=== PATIENT | female | born 1970 | race Caucasian/White ===

== ENCOUNTER 2016-04-23 11:40 | Emergency (ER) | payer OTHER ==
--- NOTE | 2016-04-23 13:46 | ED CLINICAL REPORT ---
Clinical Report - Physicians/Mid Levels [facility] [address] [place] [address] 04/23/2016 11:39 Patient: MARCELO PADILLA Time Seen: 12:55. Arrived- By private vehicle. Historian- patient. HISTORY OF PRESENT ILLNESS Chief Complaint: SKIN RASH and TENDER AREA. This started yesterday and is still present. It was gradual in onset and has been constant. It is described as painful. It has been located on the right breast. No cause has been identified. REVIEW OF SYSTEMS No chills, fever, sweats, calf pain or chest pain. No cough, difficulty breathing, pedal edema, palpitations or abdominal pain. No constipation, diarrhea, nausea, vomiting or urinary problems. All systems otherwise negative, except as recorded above. PAST HISTORY Problems: Bronchitis. Healing Abscess. Cellulitis. Abscess. Dental Caries. Cough. Obesity. Anxiety Reaction. Migraines . Arthritis, with bone spurs. Asthma. Anxiety disorder. Additional Surgeries: Cardiac Catheterization. Cholecystectomy. . Knee Surgery. Medications: Albuterol Sulfate Inhalation. Furosemide Oral 40 mg, daily. KlonoPIN Oral. Lisinopril Oral 10 mg, daily. Nortriptyline HCl Oral 50 mg, 2x a day. Potassium Chloride Oral 20 meq, 2x a day. Qvar Inhalation. Ranitidine HCl Oral 150 mg, daily. Simvastatin Oral 20 mg, daily. Allergies: ASA. Definite Moderate(nausea) (Set off her asthma) Codeine. Definite Moderate(nausea, vomiting) Hydrocodone. Morphine Sulfate. Definite Moderate(rash) PCN. Definite Moderate. SOCIAL HISTORY Former smoker. FAMILY HISTORY she and multiple family members have had prior infections with MRSA. PHYSICAL EXAM Appearance: Alert. She is morbidly obese. Eyes: Pupils equal, round and reactive to light. ENT: Ears normal. Pharynx normal. Neck: Neck supple. CVS: Normal heart rate and rhythm. Heart sounds normal. Respiratory: No respiratory distress. Breath sounds normal. Abdomen: Nontender. No organomegaly. Skin: Medium area of cellulitis with tenderness, erythema and warmth to the chest. No abscess. Extremities: Normal external inspection. Extremities nontender. No calf tenderness. PROGRESS AND PROCEDURES Course of Care: Patient is stable. Patient/family counseled. Old medical records reviewed. Disposition: Discharged. Condition: stable. CLINICAL IMPRESSION Cellulitis of the chest wall. INSTRUCTIONS Warnings: Further evaluation is necessary. GENERAL WARNINGS: Return or contact your physician immediately if your condition worsens or changes unexpectedly, if not improving as expected, or if other problems arise. Your Current Medications: CONTINUE TAKING THE FOLLOWING MEDICATIONS: Albuterol Sulfate Inhalation. Furosemide Oral : 40 mg daily. KlonoPIN Oral. Lisinopril Oral : 10 mg daily. Nortriptyline HCl Oral : 50 mg 2x a day. Potassium Chloride Oral : 20 meq 2x a day. Qvar Inhalation. Ranitidine HCl Oral : 150 mg daily. Simvastatin Oral : 20 mg daily. Prescription Medications: Bactrim DS 800 mg / 160 mg: take 2 tablets orally every 12 hours for 10 days. No refill. Substitution is permissible. Follow-up: Follow up with your doctor in two days. Call for the next available appointment. Understanding of the discharge instructions verbalized by patient. (Electronically signed by Arpan Palacios MD 04/28/2016 18:14)
--- NOTE | 2016-04-23 13:46 | ED NURSING NOTES ---
Clinical Report - Nurses [address] [place] [address] 04/23/2016 11:39 Patient: MARCELO PADILLA TRIAGE Triage time 1145. Acuity: LEVEL 4. 11:45. --11:53 Shamika Cabrera R.N. 11:47 04/23/16. BP: 181/112. HR: 94. RR: 26. O2 saturation: 95%. Temp: 97.6 F. Pain level now: 01/23. --11:53 Shamika Cabrera R.N. Triage time 1147. Chief Complaint: TENDER AREA and . under right breast, pt feels "lump". --14:03 Shamika Cabrera R.N. Weight: 141.5 kg stated. Height/Length: 62.5 inches Per Patient. BMI: 56.2. --11:48 Shamika Cabrera R.N. Medications Albuterol Sulfate Inhalation. Furosemide Oral 40 mg, daily. KlonoPIN Oral. Lisinopril Oral 10 mg, daily. Nortriptyline HCl Oral 50 mg, 2x a day. Potassium Chloride Oral 20 meq, 2x a day. Qvar Inhalation. Ranitidine HCl Oral 150 mg, daily. Simvastatin Oral 20 mg, daily. --11:52 Shamika Cabrera R.N. Allergies ASA. Definite Moderate(nausea) (Set off her asthma) Codeine. Definite Moderate(nausea, vomiting) Hydrocodone. Morphine Sulfate. Definite Moderate(rash) PCN. Definite Moderate --11:52 Shamika Cabrera R.N. History Arrived by private vehicle. Historian: patient. Accompanied by friend. Primary physician (kim). PAST MEDICAL HX: ( MRSA + in past (but states she is now MRSA Free)). SOCIAL HX: Former smoker (quit 25 years ago). --11:53 Shamika Cabrera R.N. PROBLEMS: Bronchitis. Healing Abscess. Cellulitis. Abscess. Dental Caries. Cough. Obesity. Anxiety Reaction. Migraines . Arthritis, with bone spurs. Asthma. Anxiety disorder. --11:49 Shamika Cabrera R.N. ADDITIONAL SURGERIES: Cardiac Catheterization. Cholecystectomy. . Knee Surgery. --11:51 Shamika Cabrera R.N. Interventions ID band on patient. To treatment room. --11:53 Shamika Cabrera R.N. PHYSICAL ASSESSMENT 11:47. To room via wheelchair. Patient gowned. GENERAL / NEURO / PSYCH: Alert. The patient does not appear to be in acute distress. Appears anxious. Oriented X 4. RESPIRATORY: Mild respiratory distress (chronic). CVS: Capillary refill less than 2 seconds. SKIN: Skin is warm and dry. Skin tenderness present. Increased warmth present. Erythema present. --14:02 Shamika Cabrera R.N. NURSING PROGRESS NOTES 11:45. Patient gowned. Patient identifiers checked. Call light placed in reach. Side rails up. Bed placed in lowest position. Patient ready for evaluation- chart flagged and notification provided. --11:53 Shamika Cabrera R.N. ( Observed while performed a breast exam.). --13:18 Carol Clark, Tech1 12:30 Pt given po fluids, watching t.v. in no acute distress. --14:02 Shamika Cabrera R.N. DISPOSITION / DISCHARGE 13:40. Condition at departure: unchanged and stable. Discharge instructions provided and reviewed with the patient and spouse. Reviewed medication(s) (bactrim). Patient and spouse verbalized understanding. Written instructions provided in [place]. The patient was discharged home and accompanied by spouse. She left the Emergency Department ambulatory and via private vehicle. Spouse driving. --14:01 Shamika Cabrera R.N. 13:40 04/23/16. BP: 168/90. HR: 86. RR: 22. O2 saturation: 96% on room air. Temp: deferred. Pain level now: 12/24. --14:01 Shamika Cabrera R.N. Locked/Released at 04/23/2016 14:04 by Shamika Cabrera R.N.
--- NOTE | 2016-04-23 13:46 | ED NURSING NOTES ---
Clinical Report - Nurses [facility] [address] [place] [address] 04/23/2016 11:39 Patient: MARCELO PADILLA TRIAGE Triage time 1145. Acuity: LEVEL 4. 11:45. --11:53 Shamika Cabrera R.N. 11:47 04/23/16. BP: 181/112. HR: 94. RR: 26. O2 saturation: 95%. Temp: 97.6 F. Pain level now: 01/23. --11:53 Shamika Cabrera R.N. Triage time 1147. Chief Complaint: TENDER AREA and . under right breast, pt feels "lump". --14:03 Shamika Cabrera R.N. Weight: 141.5 kg stated. Height/Length: 62.5 inches Per Patient. BMI: 56.2. --11:48 Shamika Cabrera R.N. Medications Albuterol Sulfate Inhalation. Furosemide Oral 40 mg, daily. KlonoPIN Oral. Lisinopril Oral 10 mg, daily. Nortriptyline HCl Oral 50 mg, 2x a day. Potassium Chloride Oral 20 meq, 2x a day. Qvar Inhalation. Ranitidine HCl Oral 150 mg, daily. Simvastatin Oral 20 mg, daily. --11:52 Shamika Cabrera R.N. Allergies ASA. Definite Moderate(nausea) (Set off her asthma) Codeine. Definite Moderate(nausea, vomiting) Hydrocodone. Morphine Sulfate. Definite Moderate(rash) PCN. Definite Moderate --11:52 Shamika Cabrera R.N. History Arrived by private vehicle. Historian: patient. Accompanied by friend. Primary physician (kim). PAST MEDICAL HX: ( MRSA + in past (but states she is now MRSA Free)). SOCIAL HX: Former smoker (quit 25 years ago). --11:53 Shamika Cabrera R.N. PROBLEMS: Bronchitis. Healing Abscess. Cellulitis. Abscess. Dental Caries. Cough. Obesity. Anxiety Reaction. Migraines . Arthritis, with bone spurs. Asthma. Anxiety disorder. --11:49 Shamika Cabrera R.N. ADDITIONAL SURGERIES: Cardiac Catheterization. Cholecystectomy. . Knee Surgery. --11:51 Shamika Cabrera R.N. Interventions ID band on patient. To treatment room. --11:53 Shamika Cabrera R.N. PHYSICAL ASSESSMENT 11:47. To room via wheelchair. Patient gowned. GENERAL / NEURO / PSYCH: Alert. The patient does not appear to be in acute distress. Appears anxious. Oriented X 4. RESPIRATORY: Mild respiratory distress (chronic). CVS: Capillary refill less than 2 seconds. SKIN: Skin is warm and dry. Skin tenderness present. Increased warmth present. Erythema present. --14:02 Shamika Cabrera R.N. NURSING PROGRESS NOTES 11:45. Patient gowned. Patient identifiers checked. Call light placed in reach. Side rails up. Bed placed in lowest position. Patient ready for evaluation- chart flagged and notification provided. --11:53 Shamika Cabrera R.N. ( Observed while performed a breast exam.). --13:18 Carol Clark, Tech1 12:30 Pt given po fluids, watching t.v. in no acute distress. --14:02 Shmaika Cabrera R.N. DISPOSITION / DISCHARGE 13:40. Condition at departure: unchanged and stable. Discharge instructions provided and reviewed with the patient and spouse. Reviewed medication(s) (bactrim). Patient and spouse verbalized understanding. Written instructions provided in Sammarinese. The patient was discharged home and accompanied by spouse. She left the Emergency Department ambulatory and via private vehicle. Spouse driving. --14:01 Shamika Cabrera R.N. 13:40 04/23/16. BP: 168/90. HR: 86. RR: 22. O2 saturation: 96% on room air. Temp: deferred. Pain level now: 12/24. --14:01 Shamika Cabrera R.N. Locked/Released at 04/23/2016 14:04 by Shamika Cabrera R.N.
--- NOTE | 2016-04-23 13:46 | ED CLINICAL REPORT ---
Clinical Report - Physicians/Mid Levels [facility] [address] [place] [address] 04/23/2016 11:39 Patient: MARCELO PADILLA Time Seen: 12:55. Arrived- By private vehicle. Historian- patient. HISTORY OF PRESENT ILLNESS Chief Complaint: SKIN RASH and TENDER AREA. This started yesterday and is still present. It was gradual in onset and has been constant. It is described as painful. It has been located on the right breast. No cause has been identified. REVIEW OF SYSTEMS No chills, fever, sweats, calf pain or chest pain. No cough, difficulty breathing, pedal edema, palpitations or abdominal pain. No constipation, diarrhea, nausea, vomiting or urinary problems. All systems otherwise negative, except as recorded above. PAST HISTORY Problems: Bronchitis. Healing Abscess. Cellulitis. Abscess. Dental Caries. Cough. Obesity. Anxiety Reaction. Migraines . Arthritis, with bone spurs. Asthma. Anxiety disorder. Additional Surgeries: Cardiac Catheterization. Cholecystectomy. . Knee Surgery. Medications: Albuterol Sulfate Inhalation. Furosemide Oral 40 mg, daily. KlonoPIN Oral. Lisinopril Oral 10 mg, daily. Nortriptyline HCl Oral 50 mg, 2x a day. Potassium Chloride Oral 20 meq, 2x a day. Qvar Inhalation. Ranitidine HCl Oral 150 mg, daily. Simvastatin Oral 20 mg, daily. Allergies: ASA. Definite Moderate(nausea) (Set off her asthma) Codeine. Definite Moderate(nausea, vomiting) Hydrocodone. Morphine Sulfate. Definite Moderate(rash) PCN. Definite Moderate. SOCIAL HISTORY Former smoker. FAMILY HISTORY she and multiple family members have had prior infections with MRSA. PHYSICAL EXAM Appearance: Alert. She is morbidly obese. Eyes: Pupils equal, round and reactive to light. ENT: Ears normal. Pharynx normal. Neck: Neck supple. CVS: Normal heart rate and rhythm. Heart sounds normal. Respiratory: No respiratory distress. Breath sounds normal. Abdomen: Nontender. No organomegaly. Skin: Medium area of cellulitis with tenderness, erythema and warmth to the chest. No abscess. Extremities: Normal external inspection. Extremities nontender. No calf tenderness. PROGRESS AND PROCEDURES Course of Care: Patient is stable. Patient/family counseled. Old medical records reviewed. Disposition: Discharged. Condition: stable. CLINICAL IMPRESSION Cellulitis of the chest wall. INSTRUCTIONS Warnings: Further evaluation is necessary. GENERAL WARNINGS: Return or contact your physician immediately if your condition worsens or changes unexpectedly, if not improving as expected, or if other problems arise. Your Current Medications: CONTINUE TAKING THE FOLLOWING MEDICATIONS: Albuterol Sulfate Inhalation. Furosemide Oral : 40 mg daily. KlonoPIN Oral. Lisinopril Oral : 10 mg daily. Nortriptyline HCl Oral : 50 mg 2x a day. Potassium Chloride Oral : 20 meq 2x a day. Qvar Inhalation. Ranitidine HCl Oral : 150 mg daily. Simvastatin Oral : 20 mg daily. Prescription Medications: Bactrim DS 800 mg / 160 mg: take 2 tablets orally every 12 hours for 10 days. No refill. Substitution is permissible. Follow-up: Follow up with your doctor in two days. Call for the next available appointment. Understanding of the discharge instructions verbalized by patient. (Electronically signed by Arpan Palacios MD 04/28/2016 18:14)
--- NOTE | 2016-04-28 18:14 | ED MED RECONCILIATION SUMMARY ---
Patient: MARCELO PADILLA Medication Reconciliation Report [facility] VisitID: [id number] [address] [place] [address] 45y, F Registration Date/Time: 04/23/2016 Weight: 141.5 kg Height/Length: (not available) BMI: 56.2 ALLERGIES: ASA, Codeine, Hydrocodone, Morphine Sulfate, PCN The patient's Home Medications are listed below: CONTINUE TAKING THE FOLLOWING MEDICATIONS: Albuterol Sulfate Inhalation Furosemide Oral 40 mg, daily KlonoPIN Oral Lisinopril Oral 10 mg, daily Nortriptyline HCl Oral 50 mg, 2x a day Potassium Chloride Oral 20 meq, 2x a day Qvar Inhalation Ranitidine HCl Oral 150 mg, daily Simvastatin Oral 20 mg, daily The source(s) of the original Home Medication information: Not obtained. The following Medications were given to the patient in the Emergency Department: None. The following Medications were prescribed to the patient: Bactrim DS 800 mg / 160 mg: take 2 tablets orally every 12 hours for 10 days. No refill. Substitution is permissible. -- Arpan Palacios MD
--- NOTE | 2016-04-28 18:14 | ED DISCHARGE INSTRUCTIONS ---
Patient: MARCELO PADILLA General Instructions [facility] VisitID: [id number] [place] [address] 45y, F Registration Date/Time: 04/23/2016 Cellulitis of the chest wall. INSTRUCTIONS Warnings: Further evaluation is necessary. GENERAL WARNINGS: Return or contact your physician immediately if your condition worsens or changes unexpectedly, if not improving as expected, or if other problems arise. Your Current Medications: CONTINUE TAKING THE FOLLOWING MEDICATIONS: Albuterol Sulfate Inhalation. Furosemide Oral : 40 mg daily. KlonoPIN Oral. Lisinopril Oral : 10 mg daily. Nortriptyline HCl Oral : 50 mg 2x a day. Potassium Chloride Oral : 20 meq 2x a day. Qvar Inhalation. Ranitidine HCl Oral : 150 mg daily. Simvastatin Oral : 20 mg daily. Prescription Medications: Bactrim DS 800 mg / 160 mg: take 2 tablets orally every 12 hours for 10 days. No refill. Substitution is permissible. Follow-up: Follow up with your doctor in two days. Call for the next available appointment. Understanding of the discharge instructions verbalized by patient. ADDITIONAL INFORMATION Sulfamethoxazole, Trimethoprim Oral tablet What is this medicine? SULFAMETHOXAZOLE; TRIMETHOPRIM or SMX-TMP (suhl fuh meth OK fatou zohl; trye METH oh prim) is a combination of a sulfonamide antibiotic and a second antibiotic, trimethoprim. It is used to treat or prevent certain kinds of bacterial infections. It will not work for colds, flu, or other viral infections. How should I use this medicine? Take this medicine by mouth with a full glass of water. Follow the directions on the prescription label. Take your medicine at regular intervals. Do not take it more often than directed. Do not skip doses or stop your medicine early. Talk to your ssn/ssbn weapons equipment operator regarding the use of this medicine in children. Special care may be needed. This medicine has been used in children as young as 2 months of age. What side effects may I notice from receiving this medicine? Side effects that you should report to your doctor or health behavioral health care coordinator as soon as possible: allergic reactions like skin rash or hives, swelling of the face, lips, or tongue breathing problems fever or chills, sore throat irregular heartbeat, chest pain joint or muscle pain pain or difficulty passing urine red pinpoint spots on skin redness, blistering, peeling or loosening of the skin, including inside the mouth unusual bleeding or bruising unusually weak or tired yellowing of the eyes or skin Side effects that usually do not require medical attention (report to your doctor or health behavioral health care coordinator if they continue or are bothersome): diarrhea dizziness headache loss of appetite nausea, vomiting nervousness What may interact with this medicine? Do not take this medicine with any of the following medications: aminobenzoate potassium dofetilide metronidazole This medicine may also interact with the following medications: ASHELY inhibitors like benazepril, enalapril, lisinopril, and ramipril cyclosporine digoxin diuretics indomethacin medicines for diabetes methenamine methotrexate phenytoin potassium supplements pyrimethamine sulfinpyrazone tricyclic antidepressants warfarin What if I miss a dose? If you miss a dose, take it as soon as you can. If it is almost time for your next dose, take only that dose. Do not take double or extra doses. Where should I keep my medicine? Keep out of the reach of children. Store at room temperature between 20 to 25 degrees C (68 to 77 degrees F). Protect from light. Throw away any unused medicine after the expiration date. What should I tell my health care provider before I take this medicine? They need to know if you have any of these conditions: anemia asthma being treated with anticonvulsants if you frequently drink alcohol containing drinks kidney disease liver disease low level of folic acid or [id number] dehydrogenase poor nutrition or malabsorption porphyria severe allergies thyroid disorder an unusual or allergic reaction to sulfamethoxazole, trimethoprim, sulfa drugs, other medicines, foods, dyes, or preservatives or trying to get breast-feeding What should I watch for while using this medicine? Tell your doctor or health behavioral health care coordinator if your symptoms do not improve. Drink several glasses of water a day to reduce the risk of kidney problems. Do not treat diarrhea with over the counter products. Contact your doctor if you have diarrhea that lasts more than 2 days or if it is severe and watery. This medicine can make you more sensitive to the sun. Keep out of the sun. If you cannot avoid being in the sun, wear protective clothing and use a sunscreen. Do not use sun lamps or tanning beds/booths. You have been given the following additional information: Sulfamethoxazole, Trimethoprim Oral tablet (Electronically signed by Arpan Palacios MD 04/28/2016 18:14)
--- NOTE | 2016-04-28 18:14 | ED DISCHARGE INSTRUCTIONS ---
Patient: MARCELO PADILLA General Instructions [facility] VisitID: [id number] [place] [address] 45y, F Registration Date/Time: 04/23/2016 Cellulitis of the chest wall. INSTRUCTIONS Warnings: Further evaluation is necessary. GENERAL WARNINGS: Return or contact your physician immediately if your condition worsens or changes unexpectedly, if not improving as expected, or if other problems arise. Your Current Medications: CONTINUE TAKING THE FOLLOWING MEDICATIONS: Albuterol Sulfate Inhalation. Furosemide Oral : 40 mg daily. KlonoPIN Oral. Lisinopril Oral : 10 mg daily. Nortriptyline HCl Oral : 50 mg 2x a day. Potassium Chloride Oral : 20 meq 2x a day. Qvar Inhalation. Ranitidine HCl Oral : 150 mg daily. Simvastatin Oral : 20 mg daily. Prescription Medications: Bactrim DS 800 mg / 160 mg: take 2 tablets orally every 12 hours for 10 days. No refill. Substitution is permissible. Follow-up: Follow up with your doctor in two days. Call for the next available appointment. Understanding of the discharge instructions verbalized by patient. ADDITIONAL INFORMATION Sulfamethoxazole, Trimethoprim Oral tablet What is this medicine? SULFAMETHOXAZOLE; TRIMETHOPRIM or SMX-TMP (suhl fuh meth [place] fatou zohl; trye METH oh prim) is a combination of a sulfonamide antibiotic and a second antibiotic, trimethoprim. It is used to treat or prevent certain kinds of bacterial infections. It will not work for colds, flu, or other viral infections. How should I use this medicine? Take this medicine by mouth with a full glass of water. Follow the directions on the prescription label. Take your medicine at regular intervals. Do not take it more often than directed. Do not skip doses or stop your medicine early. Talk to your hydrogen braze furnace operator regarding the use of this medicine in children. Special care may be needed. This medicine has been used in children as young as 2 months of age. What side effects may I notice from receiving this medicine? Side effects that you should report to your doctor or health medicare contact specialist as soon as possible: allergic reactions like skin rash or hives, swelling of the face, lips, or tongue breathing problems fever or chills, sore throat irregular heartbeat, chest pain joint or muscle pain pain or difficulty passing urine red pinpoint spots on skin redness, blistering, peeling or loosening of the skin, including inside the mouth unusual bleeding or bruising unusually weak or tired yellowing of the eyes or skin Side effects that usually do not require medical attention (report to your doctor or health medicare contact specialist if they continue or are bothersome): diarrhea dizziness headache loss of appetite nausea, vomiting nervousness What may interact with this medicine? Do not take this medicine with any of the following medications: aminobenzoate potassium dofetilide metronidazole This medicine may also interact with the following medications: ASHELY inhibitors like benazepril, enalapril, lisinopril, and ramipril cyclosporine digoxin diuretics indomethacin medicines for diabetes methenamine methotrexate phenytoin potassium supplements pyrimethamine sulfinpyrazone tricyclic antidepressants warfarin What if I miss a dose? If you miss a dose, take it as soon as you can. If it is almost time for your next dose, take only that dose. Do not take double or extra doses. Where should I keep my medicine? Keep out of the reach of children. Store at room temperature between 20 to 25 degrees C (68 to 77 degrees F). Protect from light. Throw away any unused medicine after the expiration date. What should I tell my health care provider before I take this medicine? They need to know if you have any of these conditions: anemia asthma being treated with anticonvulsants if you frequently drink alcohol containing drinks kidney disease liver disease low level of folic acid or [id number] dehydrogenase poor nutrition or malabsorption porphyria severe allergies thyroid disorder an unusual or allergic reaction to sulfamethoxazole, trimethoprim, sulfa drugs, other medicines, foods, dyes, or preservatives or trying to get breast-feeding What should I watch for while using this medicine? Tell your doctor or health medicare contact specialist if your symptoms do not improve. Drink several glasses of water a day to reduce the risk of kidney problems. Do not treat diarrhea with over the counter products. Contact your doctor if you have diarrhea that lasts more than 2 days or if it is severe and watery. This medicine can make you more sensitive to the sun. Keep out of the sun. If you cannot avoid being in the sun, wear protective clothing and use a sunscreen. Do not use sun lamps or tanning beds/booths. You have been given the following additional information: Sulfamethoxazole, Trimethoprim Oral tablet (Electronically signed by Arpan Palacios MD 04/28/2016 18:14)
--- NOTE | 2016-04-28 18:14 | ED MAR SUMMARY ---
..... Medication Administration Record [facility] [address] [address] Patient: MARCELO PADILLA Visit ID: [id number] 45y, F Weight: 141.5 kg Height/Length: 62.5 in BMI: 56.2 ALLERGIES: ASA, Codeine, Hydrocodone, Morphine Sulfate, PCN
--- NOTE | 2016-04-28 18:14 | ED MAR SUMMARY ---
..... Medication Administration Record [facility] [address] [place] [address] Patient: MARCELO PADILLA Visit ID: [id number] 45y, F Weight: 141.5 kg Height/Length: 62.5 in BMI: 56.2 ALLERGIES: ASA, Codeine, Hydrocodone, Morphine Sulfate, PCN
--- NOTE | 2016-04-28 18:14 | ED MED RECONCILIATION SUMMARY ---
Patient: MARCELO PADILLA Medication Reconciliation Report [facility] VisitID: [id number] [address] [place] [address] 45y, F Registration Date/Time: 04/23/2016 Weight: 141.5 kg Height/Length: (not available) BMI: 56.2 ALLERGIES: ASA, Codeine, Hydrocodone, Morphine Sulfate, PCN The patient's Home Medications are listed below: CONTINUE TAKING THE FOLLOWING MEDICATIONS: Albuterol Sulfate Inhalation Furosemide Oral 40 mg, daily KlonoPIN Oral Lisinopril Oral 10 mg, daily Nortriptyline HCl Oral 50 mg, 2x a day Potassium Chloride Oral 20 meq, 2x a day Qvar Inhalation Ranitidine HCl Oral 150 mg, daily Simvastatin Oral 20 mg, daily The source(s) of the original Home Medication information: Not obtained. The following Medications were given to the patient in the Emergency Department: None. The following Medications were prescribed to the patient: Bactrim DS 800 mg / 160 mg: take 2 tablets orally every 12 hours for 10 days. No refill. Substitution is permissible. -- Arpan Palacios MD
== END 2016-04-23 13:40 | disposition home or self-care (01) ==
LOC: ED SRH 11:40
DX: L03.313 Cellulitis of chest wall (principal); J45.909 Unspecified asthma, uncomplicated; Z79.51 Long term (current) use of inhaled steroids; Z79.899 Other long term (current) drug therapy; Z87.891 Personal history of nicotine dependence; Z88.0 Allergy status to penicillin; Z88.5 Allergy status to narcotic agent; Z88.6 Allergy status to analgesic agent

== ENCOUNTER 2016-04-25 20:42 | Emergency (ER) | payer OTHER ==
--- NOTE | 2016-04-25 22:54 | ED NURSING NOTES ---
Clinical Report - Nurses [facility] [address] [place] [address] 04/25/2016 20:42 Patient: MARCELO PADILLA TRIAGE Triage time 20:57 Apr 25 2016. Acuity: LEVEL 4. Chief Complaint: (ABCESS ON BREAST). 21:02 04/25/16. SEPSIS SCREEN: Sepsis Screen: negative. Negative (no infection suspected/documented). DEL COMA SCORE: Del Coma Scale: 15- eyes open spontaneously (4); best verbal response- oriented x 4 (5); best motor response- obeys commands (6). --21:02 Agueda Francisco R.N. 21:02 04/25/16. BP: 161/102. HR: 88. RR: 28. Temp: 98.1 F. Pain level now 10. --21:02 Agueda Francisco R.N. Weight: 142.4 kg stated. Height/Length: 62 inches Per Patient. BMI: 57.5. --20:57 Agueda Francisco R.N. Medications Albuterol Sulfate Inhalation. Furosemide Oral 40 mg, daily. KlonoPIN Oral. Lisinopril Oral 10 mg, daily. Nortriptyline HCl Oral 50 mg, 2x a day. Potassium Chloride Oral 20 meq, 2x a day. Qvar Inhalation. Ranitidine HCl Oral 150 mg, daily. Simvastatin Oral 20 mg, daily. --20:58 Agueda Francisco R.N. Medication/allergy information source: the patient. --21:02 Agueda Francisco R.N. Allergies ASA. Definite Moderate(nausea) (Set off her asthma) Codeine. Definite Moderate(nausea, vomiting) Hydrocodone. Morphine Sulfate. Definite Moderate(rash) PCN. Definite Moderate --20:58 Agueda Francisco R.N. History Arrived by private vehicle. Historian: patient. Accompanied by family. Onset. (6 minutes days ago). Treatment COMMERCIAL REAL ESTATE ASSISTANT: (BACTRIM). SOCIAL HX: Former smoker. No alcohol use or drug use. No infectious disease exposure. ABUSE ASSESSMENT: No report of abuse. SELF HARM ASSESSMENT: A self harm assessment was performed. The patient answered "no" to the question "Have you recently felt down, depressed, or hopeless?", "Have you noticed less interest or pleasure in doing things?", "Do you have thoughts of harming or killing yourself?", "Are you here because you tried to hurt yourself?", "Have you ever tried to hurt yourself before today?", "Have you recently had thoughts about harming or killing others?" and "Do you have any dangerous items in your possession?". NUTRITIONAL RISK ASSESSMENT: The nutritional risk assessment revealed no deficiencies. FUNCTIONAL ASSESSMENT: Functional assessment: no impairments noted. LEARNING NEEDS ASSESSMENT: The learning needs assessment revealed no barriers. SKIN INTEGRITY ASSESSMENT: Skin integrity risk assessment completed. No skin integrity risk identified. --21:02 Agueda Francisco R.N. PROBLEMS: Abscess. Dental Caries. Obesity. Migraines . Anxiety disorder. --20:59 Agueda Francisco R.N. Interventions ID band on patient. --21:02 Agueda Francisco R.N. PHYSICAL ASSESSMENT To room via wheelchair. ( LEFT BREAST ERYTHEMA WITH PAIN, HEAT, AND HARDENED AREA UNDER BREAST). GENERAL / NEURO / PSYCH: Alert. Oriented X 4. HEENT: Pupils equal, round and reactive to light. RESPIRATORY: Breath sounds within normal limits. CVS: Pulses within normal limits. SKIN: Skin intact. Skin is warm and dry. Normal skin turgor. Erythema. --21:04 Agueda Francisco R.N. NURSING PROGRESS NOTES 21:05 04/25/16. The initial plan of care for this patient includes an assessment with efforts to address the presence of pain; impairment of the integumentary system. This plan of care was discussed with the patient. Patient gowned. Head of bed elevated. Patient identifiers checked. Side rails up. Bed placed in lowest position. Brakes of bed on. --21:05 Agueda Francisco R.N. I & D: Incision and Drainage of abscess performed by (Dr. Palacios). Assisted by one nurse (SHAWNA Sarabia). The abscess is located on the (Right Breast). Preparation: Incision and Drainage tray set up (Sensorcaine). Procedure: skin cleansed with Betadine; a small amount of pus was drained. Cavity was irrigated with saline and packed with gauze. Sample obtained for cultures. A dressing was applied. Post-procedure: she was stable, no complications, bleeding controlled and dressing intact. Total time of assist / procedure: 15 minutes. --22:45 No Zamora R.N. DISPOSITION / DISCHARGE 22:58 04/25/16. Condition at departure: improved and stable. The goals identified in the patient's plan of care were met. No learning barriers present. Reviewed warnings (go to primary care within 48 hours for wound recheck). Reviewed medication(s) (continue all medications as directed). Reviewed referral to a primary care physician for followup. Patient verbalized understanding. Written instructions provided in Greenlandic. The patient was discharged home and accompanied by spouse. She left the Emergency Department ambulatory and via private vehicle. Spouse driving. --23:04 Agueda Francisco R.N. 20:57 04/25/16. BP: 161/102. HR: 88. RR: 28. Temp: 98.1 F. Pain level now 11/23. --23:04 Agueda Francisco R.N. Departure time: 22:59 Apr 25 2016. --23:05 Agueda Francisco R.N. Locked/Released at 04/25/2016 23:05 by Agueda Francisco R.N.
--- NOTE | 2016-04-25 22:54 | ED CLINICAL REPORT ---
Clinical Report - Physicians/Mid Levels [facility] [address] [place] [address] 04/25/2016 20:42 Patient: MARCELO PADILLA Time Seen: 20:53. Arrived- By private vehicle. Historian- patient. HISTORY OF PRESENT ILLNESS Chief Complaint: LESION. This started several days ago and is still present and now worse. It was gradual in onset and has been constant. It is described as painful. It has been generalized in location (right breast). (the patient was seen by this provider 2 days ago. She hit that time had cellulitis on the inferior aspect of her right breast. She was initiated on Bactrim DS. She was instructed at that time to do warm compresses to try and bring the infection to her head. She has been doing this. This evening she is noted a focal area of swelling and softness and says that it is become much more painful.). Recent medical care: The patient was seen recently at this facility. REVIEW OF SYSTEMS No chills, fever, sweats, calf pain or chest pain. No cough, difficulty breathing, pedal edema, palpitations or abdominal pain. No constipation, diarrhea, nausea, vomiting or urinary problems. All systems otherwise negative, except as recorded above. PAST HISTORY MRSA. Problems: Bronchitis. Healing Abscess. Cellulitis. Dental Caries. Cough. Obesity. Anxiety Reaction. Migraines . Arthritis, with bone spurs. Asthma. Anxiety disorder. Additional Surgeries: Cardiac Catheterization. Cholecystectomy. . Knee Surgery. Medications: Albuterol Sulfate Inhalation. Furosemide Oral 40 mg, daily. KlonoPIN Oral. Lisinopril Oral 10 mg, daily. Nortriptyline HCl Oral 50 mg, 2x a day. Potassium Chloride Oral 20 meq, 2x a day. Qvar Inhalation. Ranitidine HCl Oral 150 mg, daily. Simvastatin Oral 20 mg, daily. Allergies: ASA. Definite Moderate(nausea) (Set off her asthma) Codeine. Definite Moderate(nausea, vomiting) Hydrocodone. Morphine Sulfate. Definite Moderate(rash) PCN. Definite Moderate. SOCIAL HISTORY Former smoker. No alcohol use or drug use. FAMILY HISTORY Denies family medical history. PHYSICAL EXAM Appearance: Alert. Eyes: Pupils equal, round and reactive to light. ENT: Pharynx normal. Neck: Neck supple. CVS: Normal heart rate and rhythm. Heart sounds normal. Respiratory: No respiratory distress. Breath sounds normal. Abdomen: Nontender. No organomegaly. Skin: Medium abscess with fluctuance, pointing, drainage and cellulitis (persistent area of cellulitis on the inferior aspect of her right breast. Central abscess as noted). Extremities: Normal external inspection. PROGRESS AND PROCEDURES Incision & Drainage of Abscess: Time-out completed immediately before the procedure. The abscess is located in the chest (right breast). The risks of the procedure, benefits and alternatives were explained. Consent was obtained. Local anesthesia provided using 0.50% Marcaine no epi. Skin cleansed with Betadine. Ultrasound utilized to confirm presence and determine location of abscess. The abscess was incised with a #11 surgical blade. A moderate amount of pus was drained. Cavity was irrigated with saline and packed with gauze. Sample obtained for cultures. A dressing was applied. Patient/family counseled. Old medical records ordered. Disposition: Discharged. Condition: stable. CLINICAL IMPRESSION Single deep abscess with incision and drainage (right breast). INSTRUCTIONS (continue to take the Bactrim DS which you were prescribed at your previous visit as discussed.). Warnings: Further evaluation is necessary. GENERAL WARNINGS: Return or contact your physician immediately if your condition worsens or changes unexpectedly, if not improving as expected, or if other problems arise. Your Current Medications: CONTINUE TAKING THE FOLLOWING MEDICATIONS: Albuterol Sulfate Inhalation. Furosemide Oral : 40 mg daily. KlonoPIN Oral. Lisinopril Oral : 10 mg daily. Nortriptyline HCl Oral : 50 mg 2x a day. Potassium Chloride Oral : 20 meq 2x a day. Qvar Inhalation. Ranitidine HCl Oral : 150 mg daily. Simvastatin Oral : 20 mg daily. Follow-up: Follow up with your doctor tomorrow for wound check. Call for an appointment. Understanding of the discharge instructions verbalized by patient. (Electronically signed by Arpan Palacios MD 04/26/2016 3:14)
--- NOTE | 2016-04-25 22:54 | ED ORDER SUMMARY ---
..... Patient: MARCELO PADILLA OrderSheet [facility] VisitID: [id number] [address] [place] [address] 45y, F Registration Date/Time: 04/25/2016 ORDER SHEET Weight: 142.4 kg (stated) Allergies: ASA, Codeine, Hydrocodone, Morphine Sulfate, PCN GENERAL ORDERS: Culture, Wound Deep (Breast) (abcess) Urgent (22:36 04/25/2016 Ketty LEE) ([facility] 22:47 [facility] Entertainment Lawyer) MEDICATION ORDERS: IV FLUIDS: ORDER SHEET NOTES: [Electronically signed by Agueda Francisco R.N. (23:05 04/25/2016)] [Electronically signed by Arpan Palacios MD (03:14 04/26/2016)] [Electronically locked/signed by Agueda Francisco R.N. (23:05 04/25/2016)]
--- NOTE | 2016-04-25 22:54 | ED ORDER SUMMARY ---
..... Patient: MARCELO PADILLA OrderSheet [facility] VisitID: [id number] [address] [place] [address] 45y, F Registration Date/Time: 04/25/2016 ORDER SHEET Weight: 142.4 kg (stated) Allergies: ASA, Codeine, Hydrocodone, Morphine Sulfate, PCN GENERAL ORDERS: Culture, Wound Deep (Breast) (abcess) Urgent (22:36 04/25/2016 Ketty LEE) ([facility] 22:47 [facility] [employer] Consultant) MEDICATION ORDERS: IV FLUIDS: ORDER SHEET NOTES: [Electronically signed by Agueda Francisco R.N. (23:05 04/25/2016)] [Electronically signed by Arpan Palacios MD (03:14 04/26/2016)] [Electronically locked/signed by Agueda Francisco R.N. (23:05 04/25/2016)]
--- NOTE | 2016-04-26 03:14 | ED MED RECONCILIATION SUMMARY ---
Patient: MARCELO PADILLA Medication Reconciliation Report [facility] VisitID: [id number] [address] [place] [address] 45y, F Registration Date/Time: 04/25/2016 Weight: 142.4 kg Height/Length: 62 in. BMI: 57.5 ALLERGIES: ASA, Codeine, Hydrocodone, Morphine Sulfate, PCN The patient's Home Medications are listed below: CONTINUE TAKING THE FOLLOWING MEDICATIONS: Albuterol Sulfate Inhalation Furosemide Oral 40 mg, daily KlonoPIN Oral Lisinopril Oral 10 mg, daily Nortriptyline HCl Oral 50 mg, 2x a day Potassium Chloride Oral 20 meq, 2x a day Qvar Inhalation Ranitidine HCl Oral 150 mg, daily Simvastatin Oral 20 mg, daily The source(s) of the original Home Medication information: patient The following Medications were given to the patient in the Emergency Department: None. The following Medications were prescribed to the patient: None.
--- NOTE | 2016-04-26 03:14 | ED MAR SUMMARY ---
..... Medication Administration Record [facility] [address] [place], [place] [id number] Patient: MARCELO PADILLA Visit ID: [id number] 45y, F Weight: 142.4 kg Height/Length: 62 in BMI: 57.5 ALLERGIES: ASA, Codeine, Hydrocodone, Morphine Sulfate, PCN
--- NOTE | 2016-04-26 03:14 | ED MAR SUMMARY ---
..... Medication Administration Record [facility] [address] [place] [place] [id number] Patient: MARCELO PADILLA Visit ID: [id number] 45y, F Weight: 142.4 kg Height/Length: 62 in BMI: 57.5 ALLERGIES: ASA, Codeine, Hydrocodone, Morphine Sulfate, PCN
--- NOTE | 2016-04-26 03:14 | ED DISCHARGE INSTRUCTIONS ---
Patient: MARCELO PADILLA General Instructions [facility] VisitID: [id number] [place] [address] 45y, F Registration Date/Time: 04/25/2016 Single deep abscess with incision and drainage (right breast). INSTRUCTIONS (continue to take the Bactrim DS which you were prescribed at your previous visit as discussed.). Warnings: Further evaluation is necessary. GENERAL WARNINGS: Return or contact your physician immediately if your condition worsens or changes unexpectedly, if not improving as expected, or if other problems arise. Your Current Medications: CONTINUE TAKING THE FOLLOWING MEDICATIONS: Albuterol Sulfate Inhalation. Furosemide Oral : 40 mg daily. KlonoPIN Oral. Lisinopril Oral : 10 mg daily. Nortriptyline HCl Oral : 50 mg 2x a day. Potassium Chloride Oral : 20 meq 2x a day. Qvar Inhalation. Ranitidine HCl Oral : 150 mg daily. Simvastatin Oral : 20 mg daily. Follow-up: Follow up with your doctor tomorrow for wound check. Call for an appointment. Understanding of the discharge instructions verbalized by patient. ADDITIONAL INFORMATION Abscess [Incision & Drainage] An abscess (sometimes called a boil) occurs when bacteria get trapped under the skin and begin to grow. Pus forms inside the abscess as the body responds to the bacteria. An abscess can occur with an insect bite, ingrown hair, blocked oil gland, pimple, cyst, or puncture wound. Treatment of your abscess has required an incision to drain the pus. If the abscess pocket was large, a gauze packing may have been inserted. This will need to be removed and possibly replaced on your next visit. Antibiotics are not required in the treatment of a simple abscess, unless the infection is spreading into the skin around the wound (known as cellulitis). Healing of the wound will take about one to two weeks depending on the size of the abscess. Healthy tissue will grow from the bottom and sides of the opening until it seals over. Home Care: The wound may drain for the first two days. Cover the wound with a clean dry dressing. If the dressing becomes soaked with blood or pus, change it. If a gauze packing was placed inside the abscess cavity, you may be advised to remove it yourself. You may do this in the shower. Once the packing is removed, you should wash the area in the shower or bath 3 to 4 times a day, until the skin opening has closed. If you were prescribed antibiotics, take them as directed until they are all gone. You may use acetaminophen (Tylenol) or ibuprofen (Motrin, Advil) to control pain, unless another pain medicine was prescribed. [ NOTE: If you have liver disease or ever had a stomach ulcer, talk with your doctor before using these medicines.] Follow Up with your doctor as advised by our staff. If a gauze packing was inserted in your wound, it should be removed in 1-2 days. Check your wound every day for the signs of worsening infection listed below. Get Prompt Medical Attention if any of the following occur: Increasing redness or swelling Red streaks in the skin leading away from the wound Increasing local pain or swelling Continued pus draining from the wound two days after treatment Fever of 100.4F (38C) or higher, or as directed by your healthcare provider You have been given the following additional information: Abscess, Incision And Drainage (Electronically signed by Arpan Palacios MD 04/26/2016 3:14)
--- NOTE | 2016-04-26 03:14 | ED MED RECONCILIATION SUMMARY ---
Patient: MARCELO PADILLA Medication Reconciliation Report [facility] VisitID: [id number] [address] [place] [address] 45y, F Registration Date/Time: 04/25/2016 Weight: 142.4 kg Height/Length: 62 in. BMI: 57.5 ALLERGIES: ASA, Codeine, Hydrocodone, Morphine Sulfate, PCN The patient's Home Medications are listed below: CONTINUE TAKING THE FOLLOWING MEDICATIONS: Albuterol Sulfate Inhalation Furosemide Oral 40 mg, daily KlonoPIN Oral Lisinopril Oral 10 mg, daily Nortriptyline HCl Oral 50 mg, 2x a day Potassium Chloride Oral 20 meq, 2x a day Qvar Inhalation Ranitidine HCl Oral 150 mg, daily Simvastatin Oral 20 mg, daily The source(s) of the original Home Medication information: patient The following Medications were given to the patient in the Emergency Department: None. The following Medications were prescribed to the patient: None.
== END 2016-04-25 22:59 | disposition home or self-care (01) ==
LOC: ED SRH 20:42
DX: N61.1 Abscess of the breast and nipple (principal); J45.909 Unspecified asthma, uncomplicated; G43.909 Migraine, unspecified, not intractable, without status migrainosus; Z79.4 Long term (current) use of insulin; Z79.899 Other long term (current) drug therapy; Z88.5 Allergy status to narcotic agent; Z88.2 Allergy status to sulfonamides; Z88.8 Allergy status to other drugs, medicaments and biological substances
CPT/HCPCS: 90070; 90131; 90309; 90470; 91672

== ENCOUNTER 2016-04-27 16:28 | Emergency (ER) | payer OTHER ==
--- NOTE | 2016-04-27 19:53 | ED NURSING NOTES ---
Clinical Report - Nurses [facility] [address] [place] [address] 04/27/2016 16:27 Patient: MARCELO PADILLA TRIAGE Triage time 17:52. Acuity: LEVEL 4. Chief Complaint: RECHECK OF WOUND. Alert. No acute distress. DEL COMA SCORE: Del Coma Scale: 15- eyes open spontaneously (4); best verbal response- oriented x 4 (5); best motor response- obeys commands (6). --17:59 Jessica Harrell R.N. 17:55 04/27/16. BP: 196/124. HR: 79. RR: 16. O2 saturation: 100%. Temp: 97.8 F. Pain level now 0/10. --17:59 Jessica Harrell R.N. Weight: 142.4 kg stated. Height/Length: 62 inches Per Patient. BMI: 57.5. --17:55 Jessica Harrell R.N. Medications Albuterol Sulfate Inhalation. Furosemide Oral 40 mg, daily. KlonoPIN Oral. Lisinopril Oral 10 mg, daily. --17:58 Jessica Harrell R.N. Nortriptyline HCl Oral 50 mg, 2x a day. Potassium Chloride Oral 20 meq, 2x a day. Qvar Inhalation. Ranitidine HCl Oral 150 mg, daily. Simvastatin Oral 20 mg, daily. --17:58 Jessica Harrell R.N. Medication/allergy information source: the patient. --17:59 Jessica Harrell R.N. Allergies ASA. Definite Moderate(nausea) (Set off her asthma) Codeine. Definite Moderate(nausea, vomiting) Hydrocodone. Morphine Sulfate. Definite Moderate(rash) PCN. Definite Moderate --17:58 Jessica Harrell R.N. History Arrived by private vehicle, and accompanied by family. Primary physician (Kevin). ( Had I&D of abcess below right breast on sunday here in ED. States she couldn't follow up with primary care and is here for a wound check. Has been taking Bactrim as prescribed). Location: chest. Previous treatment: Previously seen in ED two days ago. Incision and drainage of abscess performed. Prescription given. SOCIAL HX: Former smoker, end date 1991. No alcohol use or drug use. FALL RISK ASSESSMENT: Fall risk assessment completed. No fall risk identified. NUTRITIONAL RISK ASSESSMENT: The nutritional risk assessment revealed no deficiencies. FUNCTIONAL ASSESSMENT: Functional assessment: no impairments noted. LEARNING NEEDS ASSESSMENT: The learning needs assessment revealed no barriers. SKIN INTEGRITY ASSESSMENT: Skin integrity risk assessment completed. No skin integrity risk identified. --17:59 Jessica Harrell R.N. PROBLEMS: Bronchitis. Healing Abscess. Cellulitis. Abscess. Dental Caries. Cough. Obesity. Anxiety Reaction. Immunizations. LNMP - Last Normal Menstrual Period. Migraines . Arthritis, with bone spurs. Anxiety disorder. Asthma. --17:58 Jessica Harrell R.N. Interventions ID band on patient. --17:59 Jessica Harrell R.N. To treatment room. --19:38 Jessica Harrell R.N. PHYSICAL ASSESSMENT Ambulatory to room. GENERAL / NEURO / PSYCH: Alert. Oriented X 4. Appears in no acute distress. EXTREMITIES: Capillary refill is less than 2 seconds in the extremities. SKIN: Healing wound. ( packed wound, previously I&D'd to lower right breast). --19:41 Jessica Harrell R.N. NURSING PROGRESS NOTES 18:00 04/27/16. BP: 180/123. --18:00 Jessica Harrell R.N. 19:41 04/27/16. The plan of care for this patient has been created. Patient gowned. Call light placed in reach. Bed placed in lowest position. Brakes of bed on. Patient ready for evaluation- chart flagged. --19:41 Jessica Harrell R.N. 19:41 04/27/16. BP: 175/118. HR: 91. RR: 22. O2 saturation: 95%. Pain level now 0/10. --19:41 Jessica Harrell R.N. DISPOSITION / DISCHARGE 22:00 04/27/16. Condition at departure: improved and stable. The goals identified in the patient's plan of care were met. No learning barriers present. Discharge instructions provided and reviewed with the patient. Reviewed medication(s) (continue current medications). Reviewed referral to a primary care physician for followup. Patient verbalized understanding. Written instructions provided in Latvian. The patient was discharged home and accompanied by spouse. She left the Emergency Department ambulatory and via private vehicle. Patient driving. FALL RISK ASSESSMENT: Fall risk assessment completed. No fall risk identified. --23:15 Agueda Francisco R.N. 19:41 04/27/16. BP: 175/118. HR: 91. RR: 22. O2 saturation: 95%. Pain level now 0/10. --23:15 Agueda Francisco R.N. Departure time: 22:00 Apr 27 2016. --23:15 Agueda Francisco R.N. Locked/Released at 04/27/2016 23:16 by Agueda Francisco R.N.
--- NOTE | 2016-04-27 19:53 | ED CLINICAL REPORT ---
Clinical Report - Physicians/Mid Levels [facility] [address] [place] [address] 04/27/2016 16:27 Patient: MARCELO PADILLA Time Seen: 18:27; initial patient contact. Arrived- By private vehicle. Historian- patient. HISTORY OF PRESENT ILLNESS Treated in emergency department two days ago. Chief Complaint: WOUND RECHECK. Previous emergency department treatment: Incision and Drainage of abscess and prescription antibiotic given. The patient has no complaints since the procedure was performed. REVIEW OF SYSTEMS No fever or vomiting. All systems otherwise negative, except as recorded above. PAST HISTORY Bronchitis. Healing Abscess. Cellulitis. Abscess. Dental Caries. Cough. Obesity. Anxiety Reaction. Immunizations. LNMP - Last Normal Menstrual Period. Migraines . Arthritis, with bone spurs. Anxiety disorder. Asthma. Medications: Bactrim DS Oral. Nortriptyline HCl Oral 50 mg, 2x a day. Potassium Chloride Oral 20 meq, 2x a day. Qvar Inhalation. Ranitidine HCl Oral 150 mg, daily. Simvastatin Oral 20 mg, daily. Albuterol Sulfate Inhalation. Furosemide Oral 40 mg, daily. KlonoPIN Oral. Lisinopril Oral 10 mg, daily. Allergies: ASA. Definite Moderate(nausea) (Set off her asthma) Codeine. Definite Moderate(nausea, vomiting) Hydrocodone. Morphine Sulfate. Definite Moderate(rash) PCN. Definite Moderate. SOCIAL HISTORY Former smoker. No alcohol use or drug use. ADDITIONAL NOTES The nursing notes have been reviewed with agreement regarding the chief complaint, PMH and patient medications and allergies. PHYSICAL EXAM Vital Signs: 04/27/2016 17:55 BP: 196/124. HR: 79. RR: 16. O2 saturation: 100%. Temp: 97.8 F. Have been reviewed. Hypertensive. Heart rate normal. Respiratory rate normal. Temperature normal. Oxygen saturation normal. Appearance: Alert. Oriented X3. No acute distress. Skin: Healing wound. Single wound present- Packing removed, scant discharge on packing, no active drainage and no drainage w/ expression. Neuro: Oriented X 3. PROGRESS AND PROCEDURES Course of Care: 04/27/2016 19:41 BP: 175/118. HR: 91. RR: 22. O2 saturation: 95%. Vital Signs: have been reviewed. Blood pressure: Has not taken her BP meds today yet.- hypertensive. Heart rate normal. Tachypneic. Oxygen saturation normal. Disposition: Condition: good. CLINICAL IMPRESSION Single deep healing abscess to the chest wall. INSTRUCTIONS Protect wound and keep wound area clean. (Irrigate wound in shower twice daily, dry, then cover with antibiotic ointment and place loose bandage over top.). Your Current Medications: CONTINUE TAKING THE FOLLOWING MEDICATIONS: Albuterol Sulfate Inhalation. Bactrim DS Oral. Furosemide Oral : 40 mg daily. KlonoPIN Oral. Lisinopril Oral : 10 mg daily. Nortriptyline HCl Oral : 50 mg 2x a day. Potassium Chloride Oral : 20 meq 2x a day. Qvar Inhalation. Ranitidine HCl Oral : 150 mg daily. Simvastatin Oral : 20 mg daily. Prescription Medications: Bactroban 2% ointment: apply small amount to affected area twice daily until symptoms better. Dispense twenty-two (22) grams. No refills. Substitution is permissible. Follow-up: Follow up with your doctor in four days. Call for an appointment. (Electronically signed by Marky Pereira Dr. 04/27/2016 19:58)
--- NOTE | 2016-04-27 23:16 | ED DISCHARGE INSTRUCTIONS ---
Patient: MARCELO PADILLA General Instructions [facility] VisitID: [id number] [place] [address] 45y, F Registration Date/Time: 04/27/2016 Single deep healing abscess to the chest wall. INSTRUCTIONS Protect wound and keep wound area clean. (Irrigate wound in shower twice daily, dry, then cover with antibiotic ointment and place loose bandage over top.). Your Current Medications: CONTINUE TAKING THE FOLLOWING MEDICATIONS: Albuterol Sulfate Inhalation. Bactrim DS Oral. Furosemide Oral : 40 mg daily. KlonoPIN Oral. Lisinopril Oral : 10 mg daily. Nortriptyline HCl Oral : 50 mg 2x a day. Potassium Chloride Oral : 20 meq 2x a day. Qvar Inhalation. Ranitidine HCl Oral : 150 mg daily. Simvastatin Oral : 20 mg daily. Prescription Medications: Bactroban 2% ointment: apply small amount to affected area twice daily until symptoms better. Dispense twenty-two (22) grams. No refills. Substitution is permissible. Follow-up: Follow up with your doctor in four days. Call for an appointment. ADDITIONAL INFORMATION Mupirocin Topical ointment What is this medicine? MUPIROCIN (myoo PEER oh sin) is an antibiotic. It is used on the skin to treat skin infections. How should I use this medicine? This medicine is for external use only. Follow the directions on the prescription label. Wash your hands before and after use. Before applying, wash the affected area with mild soap and water and pat dry. Apply a small amount to the affected area and rub gently. You can cover the area with a gauze dressing. Do not get this medicine in your eyes. If you do, rinse out with plenty of cool tap water. Do not use your medicine more often than directed. Finish the full course of medicine prescribed by your doctor or health inpatient care manager rn even if you think your condition is better. Do not use over large areas of burnt skin. Talk to your metal tank erector regarding the use of this medicine in children. Special care may be needed. What side effects may I notice from receiving this medicine? Side effects that you should report to your doctor or health inpatient care manager rn as soon as possible: skin rash, redness, continued swelling, burning, itching, stinging, or pain Side effects that usually do not require medical attention (report to your doctor or health inpatient care manager rn if they continue or are bothersome): dry skin, itching What may interact with this medicine? Interactions are not expected. Do not use any other skin products on the affected area without telling your doctor or health inpatient care manager rn. What if I miss a dose? If you miss a dose, take it as soon as you can. If it is almost time for your next dose, take only that dose. Do not take double or extra doses. Where should I keep my medicine? Keep out of the reach of children. Store at room temperature between 20 and 25 degrees C (68 and 77 degrees F). Throw away any unused medicine after the expiration date. What should I tell my health care provider before I take this medicine? They need to know if you have any of these conditions: an unusual or allergic reaction to mupirocin, polyethylene glycol (PEG), or other topical antibiotic medicine or trying to get breast-feeding What should I watch for while using this medicine? Tell your doctor or health inpatient care manager rn if your skin condition does not begin to improve within 3 to 5 days. You have been given the following additional information: Mupirocin Topical ointment (Electronically signed by Marky Pereira Dr. 04/27/2016 19:58)
--- NOTE | 2016-04-27 23:16 | ED MED RECONCILIATION SUMMARY ---
Patient: VALERIERANCHO WALKERA Margarita Medication Reconciliation Report [facility] VisitID: [id number] [address] [place] [address] 45y, F Registration Date/Time: 04/27/2016 Weight: 142.4 kg Height/Length: 62 in. BMI: 57.5 ALLERGIES: ASA, Codeine, Hydrocodone, Morphine Sulfate, PCN The patient's Home Medications are listed below: CONTINUE TAKING THE FOLLOWING MEDICATIONS: Albuterol Sulfate Inhalation Bactrim DS Oral Furosemide Oral 40 mg, daily KlonoPIN Oral Lisinopril Oral 10 mg, daily Nortriptyline HCl Oral 50 mg, 2x a day Potassium Chloride Oral 20 meq, 2x a day Qvar Inhalation Ranitidine HCl Oral 150 mg, daily Simvastatin Oral 20 mg, daily The source(s) of the original Home Medication information: patient The following Medications were given to the patient in the Emergency Department: None. The following Medications were prescribed to the patient: Bactroban 2% ointment: apply small amount to affected area twice daily until symptoms better. Dispense twenty-two (22) grams. No refills. Substitution is permissible. -- Marky Pereira Dr.
--- NOTE | 2016-04-27 23:16 | ED MAR SUMMARY ---
..... Medication Administration Record [facility] [address] [place] [address] Patient: MARCELO PADILLA Visit ID: [id number] 45y, F Weight: 142.4 kg Height/Length: 62 in BMI: 57.5 ALLERGIES: ASA, Codeine, Hydrocodone, Morphine Sulfate, PCN
--- NOTE | 2016-04-27 23:16 | ED MAR SUMMARY ---
..... Medication Administration Record [facility] [address] [place] [address] Patient: MARCELO PADILLA Visit ID: [id number] 45y, F Weight: 142.4 kg Height/Length: 62 in BMI: 57.5 ALLERGIES: ASA, Codeine, Hydrocodone, Morphine Sulfate, PCN
--- NOTE | 2016-04-27 23:16 | ED DISCHARGE INSTRUCTIONS ---
Patient: MARCELO PADILLA General Instructions [facility] VisitID: [id number] [place] [address] 45y, F Registration Date/Time: 04/27/2016 Single deep healing abscess to the chest wall. INSTRUCTIONS Protect wound and keep wound area clean. (Irrigate wound in shower twice daily, dry, then cover with antibiotic ointment and place loose bandage over top.). Your Current Medications: CONTINUE TAKING THE FOLLOWING MEDICATIONS: Albuterol Sulfate Inhalation. Bactrim DS Oral. Furosemide Oral : 40 mg daily. KlonoPIN Oral. Lisinopril Oral : 10 mg daily. Nortriptyline HCl Oral : 50 mg 2x a day. Potassium Chloride Oral : 20 meq 2x a day. Qvar Inhalation. Ranitidine HCl Oral : 150 mg daily. Simvastatin Oral : 20 mg daily. Prescription Medications: Bactroban 2% ointment: apply small amount to affected area twice daily until symptoms better. Dispense twenty-two (22) grams. No refills. Substitution is permissible. Follow-up: Follow up with your doctor in four days. Call for an appointment. ADDITIONAL INFORMATION Mupirocin Topical ointment What is this medicine? MUPIROCIN (myoo PEER oh sin) is an antibiotic. It is used on the skin to treat skin infections. How should I use this medicine? This medicine is for external use only. Follow the directions on the prescription label. Wash your hands before and after use. Before applying, wash the affected area with mild soap and water and pat dry. Apply a small amount to the affected area and rub gently. You can cover the area with a gauze dressing. Do not get this medicine in your eyes. If you do, rinse out with plenty of cool tap water. Do not use your medicine more often than directed. Finish the full course of medicine prescribed by your doctor or health health care specialist even if you think your condition is better. Do not use over large areas of burnt skin. Talk to your continuous improvement intern regarding the use of this medicine in children. Special care may be needed. What side effects may I notice from receiving this medicine? Side effects that you should report to your doctor or health health care specialist as soon as possible: skin rash, redness, continued swelling, burning, itching, stinging, or pain Side effects that usually do not require medical attention (report to your doctor or health health care specialist if they continue or are bothersome): dry skin, itching What may interact with this medicine? Interactions are not expected. Do not use any other skin products on the affected area without telling your doctor or health health care specialist. What if I miss a dose? If you miss a dose, take it as soon as you can. If it is almost time for your next dose, take only that dose. Do not take double or extra doses. Where should I keep my medicine? Keep out of the reach of children. Store at room temperature between 20 and 25 degrees C (68 and 77 degrees F). Throw away any unused medicine after the expiration date. What should I tell my health care provider before I take this medicine? They need to know if you have any of these conditions: an unusual or allergic reaction to mupirocin, polyethylene glycol (PEG), or other topical antibiotic medicine or trying to get breast-feeding What should I watch for while using this medicine? Tell your doctor or health health care specialist if your skin condition does not begin to improve within 3 to 5 days. You have been given the following additional information: Mupirocin Topical ointment (Electronically signed by Marky Pereira Dr. 04/27/2016 19:58)
--- NOTE | 2016-04-27 23:16 | ED MED RECONCILIATION SUMMARY ---
Patient: VALERIERANCHO WALKERA Margarita Medication Reconciliation Report [facility] VisitID: [id number] [address] [place] [address] 45y, F Registration Date/Time: 04/27/2016 Weight: 142.4 kg Height/Length: 62 in. BMI: 57.5 ALLERGIES: ASA, Codeine, Hydrocodone, Morphine Sulfate, PCN The patient's Home Medications are listed below: CONTINUE TAKING THE FOLLOWING MEDICATIONS: Albuterol Sulfate Inhalation Bactrim DS Oral Furosemide Oral 40 mg, daily KlonoPIN Oral Lisinopril Oral 10 mg, daily Nortriptyline HCl Oral 50 mg, 2x a day Potassium Chloride Oral 20 meq, 2x a day Qvar Inhalation Ranitidine HCl Oral 150 mg, daily Simvastatin Oral 20 mg, daily The source(s) of the original Home Medication information: patient The following Medications were given to the patient in the Emergency Department: None. The following Medications were prescribed to the patient: Bactroban 2% ointment: apply small amount to affected area twice daily until symptoms better. Dispense twenty-two (22) grams. No refills. Substitution is permissible. -- Marky Pereira Dr.
== END 2016-04-27 22:00 | disposition home or self-care (01) ==
LOC: ED SRH 16:28
DX: L02.213 Cutaneous abscess of chest wall (principal); J45.909 Unspecified asthma, uncomplicated; Z79.899 Other long term (current) drug therapy; Z87.891 Personal history of nicotine dependence; Z88.0 Allergy status to penicillin; Z88.5 Allergy status to narcotic agent; Z88.8 Allergy status to other drugs, medicaments and biological substances